=== PATIENT | male | born 1975 | race Caucasian/White ===

== ENCOUNTER 2018-01-31 23:32 | Emergency (ER) | payer OTHER ==
[2018-01-31] MEDS ORDERED: Adacel (T-DAP) 0.5 ML VIAL ONE (23:46)
== END 2018-02-01 00:14 | disposition home or self-care (01) ==
LOC: NAV ERS 23:32
DX: S01.111A Laceration without foreign body of right eyelid and periocular area, initial encounter (principal); W22.8XXA Striking against or struck by other objects, initial encounter; Y93.67 Activity, basketball
CPT/HCPCS: 12011; 90471; 90715